=== PATIENT | female | born 1965 | race Caucasian/White ===

== ENCOUNTER 2023-07-03 23:26 | Emergency (ER) | payer OTHER ==
[~2023-07-03] VITALS: Ht 177.8 cm; Wt 68.0 kg
[2023-07-03 23:28] VITALS: BP_SYST 116; PULSE 74; RESP 19; TEMP 97.8; O2SAT 100
[2023-07-04] MEDS ORDERED: DIPHENHYDRAMINE INJ 50 MG/ML VIAL IVP ONE
[2023-07-04] MEDS ORDERED: DEXAMETHASONE SOD PHOSPHATE 10 MG/ML VIAL IV ONE
[2023-07-04] MEDS ORDERED: NACL 0.9% 1,000 ML IV ONE
[2023-07-04] MEDS ORDERED: METOCLOPRAMIDE HCL 10 MG/2 ML VIAL IVP ONE
[2023-07-04 01:33] LABS: BASOPHILS % (AUTO) 0.8 % (0.0-2.0); EOSINOPHILS # (AUTO) 0.2 K/uL (0.0-0.4); EOSINOPHILS % (AUTO) 4.3 % (0.0-4.0); HEMATOCRIT 40.5 % (36-48); LYMPHOCYTES # (AUTO) 2.9 K/uL (1.0-5.5); LYMPHOCYTES % (AUTO) 49.8 % (20.5-51.5); MEAN CORPUSCULAR HEMOGLOBIN 34 pg (27-31); MEAN CORPUSCULAR HGB CONC 35 % (32-36); MEAN CORPUSCULAR VOLUME 99 fL (79.0-98.0); MONOCYTES # (AUTO) 0.5 K/uL (0.0-1.0); MONOCYTES % (AUTO) 8.7 % (1.7-9.3); NEUTROPHILS # (AUTO) 2.1 K/uL (1.8-7.7); NEUTROPHILS % (AUTO) 36.4 % (40.0-70.0); PLATELET COUNT (AUTO) 175 K/uL (130-430); RED CELL DISTRIBUTION WIDTH 13.6 % (9.0-15.0); WHITE BLOOD COUNT (AUTO) 5.8 K/uL (4.8-10.8)
[2023-07-04 01:44] LABS: CALCIUM 8.5 mg/dL (8.4-11.0); CREATININE 0.64 mg/dL (0.55-1.30); POTASSIUM 3.4 mmol/L (3.5-5.1)
[2023-07-04 01:48] LABS: ALBUMIN 3.9 g/dL (3.4-4.8); PHOSPHORUS 4.5 mg/dL (2.7-4.5); TOTAL BILIRUBIN 0.4 mg/dL (0.0-1.0)
[2023-07-04 01:53] LABS: ERYTHROCYTE SEDIMENTATION RATE < 1 MM/HR (0-20)
[2023-07-04] MEDS ORDERED: BUTA1CAP45 PO (02:25)
[2023-07-04] MEDS ORDERED: ACET-2634 PO (02:25)
[2023-07-04 02:39] VITALS: BP_SYST 115; PULSE 67; RESP 20; TEMP 97.8; O2SAT 98
== END 2023-07-04 02:39 | disposition home or self-care (01) ==
LOC: SED 23:26
DX: R51.9 Headache, unspecified (principal); R20.2 Paresthesia of skin; I10 Essential (primary) hypertension; Z79.899 Other long term (current) drug therapy
CPT/HCPCS: 99285; 70450; 80053; 84100; 85025; 85651; 36415; 76376; 82397; 96374; 96375; 96361; J1100; J1200; J2765; J7030